=== PATIENT | female | born 2000 | race Caucasian/White ===

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

== ENCOUNTER 2019-05-30 00:03 | Emergency (ER) | payer BC ==
[2019-05-30] MEDS ORDERED: Lidocaine 2% 20 ML MDV INFILT ONE (00:04)
--- NOTE | 2019-05-30 00:17 | EDM.PDOC ---
ED HPI GENERAL MEDICAL PROBLEM - General Stated Complaint: wrist laceration Time Seen by Provider: 05/30/19 00:17 Source of Information: Reports: Patient History Limitations: Reports: No Limitations - History of Present Illness INITIAL COMMENTS - FREE TEXT/NARRATIVE: Woodrow had a knife cut her left hand. 2cm lac to the left wrist,around the anatomic snuff box left wrist Pain Score (Numeric/FACES): 3 - Related Data Allergies Allergy/AdvReac Type Severity Reaction Status Date / Time amoxicillin Allergy Hives Verified 05/30/19 00:34 Sulfa (Sulfonamide Allergy Hives Verified 05/30/19 00:34 Antibiotics) Home Meds: Home Meds NK [No Known Home Meds] 05/30/19 [History] Past Medical History Gastrointestinal History: Reports: Chronic Constipation BING[employer] WORKER History: Reports: Other BING[employer] WORKER History: G1, is approx 15wks Psychiatric History: Reports: Anxiety - Infectious Disease History Infectious Disease History: Reports: Chicken Pox - Past Surgical History HEENT Surgical History: Reports: Oral Surgery GI Surgical History: Reports: None Social & Family History - Family History Family Medical History: Noncontributory - Caffeine Use Caffeine Use: Reports: None Review of Systems - Review of Systems Review Of Systems: Comprehensive ROS is negative, except as noted in HPI. ED EXAM, GENERAL - Physical Exam Exam: See Below Free Text/Narrative:: 2 cm lac ,clean,to the left violar aspect wrist. NM intact ED TRAUMA EXTREMITY PROCEDURES - Laceration/Wound Repair Left Proximal Wrist Lac/Wound Length In cm: 2 Appearance: Subcutaneous, Linear, Clean Distal NVT: Neuro & Vascular Intact, No Tendon Injury Anesthetic Type: Local Local Anesthesia - Lidocaine (Xylocaine): 2% Plain Local Anesthetic Volume: 3cc Skin Prep: Chlorhexidine (Hibiciens), Saline Exploration/Debridement/Repair: In a Bloodless Field Closed With: Sutures Suture Size: 4-0 # of Sutures: 3 Suture Type: Prolene Drain Placement: No Sterile Dressing Applied: Nurse Tetanus Status Addressed: Yes Complications: No Course - Vital Signs Last Recorded V/S: Last Vital Signs Temp 98.7 F 05/30/19 00:05 Pulse 83 05/30/19 00:05 Resp 17 05/30/19 00:05 BP 127/74 05/30/19 00:05 Pulse Ox 99 05/30/19 00:05 Departure - Departure Time of Disposition: 08:32 Disposition: Home, Self-Care 01 Condition: Good Clinical Impression: Laceration - Discharge Information Instructions: Sutured Wound Care Referrals: Eleuterio Mclain MD [Primary Care Provider] - Forms: ED Department Discharge Additional Instructions: Take Tylenol or Ibuprofen for pain and discomfort. Keep wound clean and dry. Wash with soapy water, apply bacitracin and cover with dressing. Read education printed and given to you. Call if you have any questions or come back to the ER if symptoms get worse. Sepsis Event Note - Focused Exam Vital Signs: Vital Signs Temp Pulse Resp BP Pulse Ox 05/30/19 00:05 98.7 F 83 17 127/74 99 Date Exam was Performed: 05/30/19 Time Exam was Performed: 08:32 - Problem List & Annotations (1) Laceration SNOMED Code(s): 741426122 Code(s): EMX3204 - Status: Acute - Problem List Review Problem List Initiated/Reviewed/Updated: Yes - Assessment/Plan Plan: Remove sutures in 1 week
== END 2019-05-30 00:22 | disposition home or self-care (01) ==
LOC: FB.ED 00:03
DX: O9A.212 Injury, poisoning and certain other consequences of external causes complicating pregnancy, second trimester (principal); S61.512A Laceration without foreign body of left wrist, initial encounter; Z88.0 Allergy status to penicillin; Z88.2 Allergy status to sulfonamides; Z3A.17 17 weeks gestation of pregnancy; W26.0XXA Contact with knife, initial encounter
CPT/HCPCS: 12001; 99282-25; J2001